=== PATIENT | male | born 1945 | race Caucasian/White ===

== ENCOUNTER → 2016-11-16 | Outpatient (CLI) | payer OTHER ==
[2016-11-16 13:28] LABS: BLOOD GAS BASE EXCESS 0.9 mmol/L (-2-2); BLOOD GAS CARBOXYHEMOGLOBIN 4.9 % (0-4); BLOOD GAS HCO3 24 mmol/L (22-26); BLOOD GAS METHEMOGLOBIN 1.4 % (0-2); BLOOD GAS O2 HGB SATURATION 91 % (90-100); BLOOD GAS OXYGEN CONTENT 17.7 Vol % (12.0-20.0); BLOOD GAS PCO2 35 mmHg (38-42); BLOOD GAS PO2 82 mmHg (61-120); BLOOD GAS TOTAL HGB 13.8 G/DL (12.0-16.0); CRITICAL VALUE NO; DRAW SITE RT RADIAL; FIO2 21 %; NUMBER OF ARTERIAL PUNCTURES 1; STAT NO; TEMP CORR TO 98.6; ULNAR PULSE PRESENT
== END ==
LOC: HRSP 12:55
PROVIDERS: ATTEND Internal Medicine
DX: J44.9 Chronic obstructive pulmonary disease, unspecified (principal)
CPT/HCPCS: 36600; 82805